=== PATIENT | female | born 1965 | race Caucasian/White ===

== ENCOUNTER → 2021-06-13 | Outpatient (CLI) | payer OTHER ==
[~2021-06-13] MED LIST: CYCLOBENZ5 MG PO; PUB MULTIVITAM1 EACH PO
== END ==
LOC: RAD 09:05
DX: M47.816 Spondylosis without myelopathy or radiculopathy, lumbar region (principal); K80.20 Calculus of gallbladder without cholecystitis without obstruction

== ENCOUNTER → 2021-07-18 | Outpatient (CLI) | payer OTHER | LOC: MAMMO 12:59 | DX: Z12.31 Encounter for screening mammogram for malignant neoplasm of breast (principal) ==

== ENCOUNTER → 2021-08-02 | Outpatient (CLI) | payer OTHER | LOC: LAB 09:18 | DX: N39.0 Urinary tract infection, site not specified (principal) ==

== ENCOUNTER → 2021-08-08 | Outpatient (CLI) | payer OTHER ==
[2021-08-08 08:48] LABS: BASO # 0.01 K/mm3 (0.02-0.10); EOS # 0.04 K/mm3 (0.04-0.40); EOS % 1.4 % (1.0-5.0); HEMATOCRIT 42.8 % (37.0-47.0); HEMOGLOBIN 13.7 g/dL (12.5-16.0); LYMPH# 1.06 K/mm3 (1.50-4.00); MEAN CELL VOLUME 92 fl (78-100); MEAN CORPUSCULAR HEMOGLOBIN 30 pg (27-31); MEAN CORPUSCULAR HGB CONC 32 g/dL (33-37); MONO # 0.27 K/mm3 (0.20-0.80); NEU # 1.47 K/mm3 (1.40-6.50); PLATELET COUNT 285 K/mm3 (130-400); RED BLOOD COUNT 4.63 M/mm3 (4.10-5.30); RED CELL DISTRIBUTION WIDTH 11.8 % (11.5-14.5); WHITE BLOOD COUNT 2.9 K/mm3 (4.8-10.8)
[2021-08-08 08:52] LABS: ALBUMIN 3.9 g/dL (3.5-5.0); POTASSIUM 4.4 mmol/L (3.5-5.1)
[2021-08-08 08:53] LABS: CALCIUM 9.8 mg/dL (8.3-10.5)
[2021-08-08 08:54] LABS: TOTAL PROTEIN 8.3 g/dL (6.4-8.3)
[2021-08-08 08:56] LABS: TOTAL BILIRUBIN 0.5 mg/dL (0.2-1.2)
[2021-08-08 09:10] LABS: PH-URINE 6.5 (5.0 - 8.0); URINE APPEARANCE CLEAR; URINE BILIRUBIN NEGATIVE (NEGATIVE); URINE BLOOD NEGATIVE (NEGATIVE); URINE COLOR LT YELLOW; URINE GLUCOSE NEGATIVE (NEGATIVE); URINE KETONE NEGATIVE (NEGATIVE); URINE LEUKOCYTE ESTERASE NEGATIVE (NEGATIVE); URINE NITRATE NEGATIVE (NEGATIVE); URINE PROTEIN(semi-quant) NEGATIVE (NEGATIVE); URINE UROBILINOGEN NORMAL (NORMAL)
[2021-08-08 09:11] LABS: URINE WBC 0-1 /hpf (0-3)
== END ==
LOC: LAB 08:12
PROVIDERS: Physician Assistant
DX: R10.9 Unspecified abdominal pain (principal)

== ENCOUNTER → 2021-08-09 | Outpatient (CLI) | payer OTHER | LOC: RAD 08:17 | DX: K80.20 Calculus of gallbladder without cholecystitis without obstruction (principal); E27.8 Other specified disorders of adrenal gland | CPT/HCPCS: Q9967 ==

== ENCOUNTER 2021-09-06 18:31 | Emergency (ER) | payer OTHER ==
[2021-09-06] MEDS ORDERED: PUB MULTIVITAM1 EACH PO (20:11)
[2021-09-06] MEDS ORDERED: CYCLOBENZ5 MG PO (21:13)
[2021-09-06 21:20] VITALS: BP 122/78
== END 2021-09-06 21:21 | disposition home or self-care (01) ==
LOC: ED 18:31
DX: S39.012A Strain of muscle, fascia and tendon of lower back, initial encounter (principal); S70.02XA Contusion of left hip, initial encounter; S00.83XA Contusion of other part of head, initial encounter; M79.674 Pain in right toe(s); W10.8XXA Fall (on) (from) other stairs and steps, initial encounter

== ENCOUNTER → 2022-04-09 | Outpatient (CLI) | payer OTHER ==
[2022-04-09 09:48] LABS: URINE APPEARANCE CLEAR; URINE BILIRUBIN NEGATIVE (NEGATIVE); URINE BLOOD NEGATIVE (NEGATIVE); URINE GLUCOSE NEGATIVE (NEGATIVE); URINE KETONE NEGATIVE (NEGATIVE); URINE LEUKOCYTE ESTERASE 1+ (NEGATIVE); URINE NITRATE NEGATIVE (NEGATIVE); URINE PROTEIN(semi-quant) NEGATIVE (NEGATIVE); URINE UROBILINOGEN NORMAL (NORMAL)
[2022-04-09 09:49] LABS: URINE COLOR LIGHT YELLOW
== END ==
LOC: LAB 08:27
PROVIDERS: Physician Assistant
DX: F41.9 Anxiety disorder, unspecified (principal); F43.0 Acute stress reaction; R35.0 Frequency of micturition; R39.9 Unspecified symptoms and signs involving the genitourinary system; Z87.440 Personal history of urinary (tract) infections

== ENCOUNTER → 2022-05-17 | Outpatient (CLI) | payer OTHER | LOC: RAD 08:08 | DX: M25.512 Pain in left shoulder (principal); M25.511 Pain in right shoulder ==

== ENCOUNTER 2022-07-22 08:00 | Outpatient (RCR) | payer OTHER | END 2022-08-19 | disposition still patient (30) | LOC: PT | DX: M25.512 Pain in left shoulder (principal) ==

== ENCOUNTER 2022-08-20 08:00 | Outpatient (RCR) | payer OTHER | END 2022-09-18 16:02 | disposition home or self-care (01) | LOC: PT 08:00 | DX: M25.512 Pain in left shoulder (principal) ==

== ENCOUNTER → 2024-07-14 | Outpatient (CLI) | payer OTHER ==
[~2024-07-14] MED LIST changes: +CEFDINIR300 MG PO; +FLOMAX0.4 MG PO; +PERCOCET 325 MG1 TA2 PO; +ZOFRAN ODT4 MG PO
[2024-07-14 10:41] LABS: BASO # 0.01 K/mm3 (0.02-0.10); EOS # 0.04 K/mm3 (0.04-0.40); EOS % 1.2 % (1.0-5.0); HEMATOCRIT 44.8 % (37.0-47.0); HEMOGLOBIN 14.7 g/dL (12.5-16.0); LYMPH# 1.27 K/mm3 (1.50-4.00); MEAN CELL VOLUME 91 fl (78-100); MEAN CORPUSCULAR HEMOGLOBIN 30 pg (27-31); MEAN CORPUSCULAR HGB CONC 33 g/dL (33-37); MONO # 0.23 K/mm3 (0.20-0.80); NEU # 1.81 K/mm3 (1.40-6.50); PLATELET COUNT 258 K/mm3 (130-400); RED BLOOD COUNT 4.93 M/mm3 (4.10-5.30); RED CELL DISTRIBUTION WIDTH 12.2 % (11.5-14.5); WHITE BLOOD COUNT 3.4 K/mm3 (4.8-10.8)
[2024-07-14 10:45] LABS: ALBUMIN 4.2 g/dL (3.5-5.0)
[2024-07-14 10:49] LABS: TOTAL BILIRUBIN 0.7 mg/dL (0.2-1.2)
[2024-07-14 22:53] LABS: FOLLICLE STIMULATING HORMONE 68.1 mIU/mL (()); LUTENIZING HORMONE 33.9 mIU/mL (())
== END ==
LOC: LAB 10:22
PROVIDERS: Physician Assistant
DX: R53.83 Other fatigue (principal); E89.41 Symptomatic postprocedural ovarian failure; E78.5 Hyperlipidemia, unspecified

== ENCOUNTER → 2024-08-13 | Outpatient (CLI) | payer OTHER | LOC: RAD 12:37 | DX: N20.2 Calculus of kidney with calculus of ureter (principal) ==

== ENCOUNTER 2024-11-19 07:17 | Emergency (ER) | payer OTHER ==
[~2024-11-19] VITALS: Ht 160 cm; Wt 63.6 kg
[2024-11-19] MEDS ORDERED: Mag/Al Hydrox/Simeth Susp 30 ML CUP PO ONE (07:45)
[2024-11-19 07:47] LABS: BASO # 0.01 K/mm3 (0.02-0.10); EOS # 0.07 K/mm3 (0.04-0.40); EOS % 1.7 % (1.0-5.0); HEMATOCRIT 42.9 % (37.0-47.0); HEMOGLOBIN 13.9 g/dL (12.5-16.0); LYMPH# 1.51 K/mm3 (1.50-4.00); MEAN CELL VOLUME 92 fl (78-100); MEAN CORPUSCULAR HEMOGLOBIN 30 pg (27-31); MEAN CORPUSCULAR HGB CONC 32 g/dL (33-37); MEAN PLATELET VOLUME 9.1 fl (7.4-10.4); MONO # 0.26 K/mm3 (0.20-0.80); NEU # 2.24 K/mm3 (1.40-6.50); PLATELET COUNT 250 K/mm3 (130-400); RED BLOOD COUNT 4.65 M/mm3 (4.10-5.30); RED CELL DISTRIBUTION WIDTH 12.2 % (11.5-14.5); WHITE BLOOD COUNT 4.1 K/mm3 (4.8-10.8)
[2024-11-19 07:52] LABS: ALBUMIN 4.1 g/dL (3.5-5.0)
[2024-11-19 07:53] LABS: CALCIUM 9.4 mg/dL (8.3-10.5)
[2024-11-19 07:56] LABS: TOTAL BILIRUBIN 0.5 mg/dL (0.2-1.2)
[2024-11-19 08:20] LABS: D-DIMER 0.28 mg/L FEU (0.15-0.50)
[2024-11-19] MEDS ORDERED: PANTOPRAZOLE SO40 MG PO (08:41)
[2024-11-19 08:54] VITALS: BP 130/79
== END 2024-11-19 08:56 | disposition home or self-care (01) ==
LOC: ED 07:17
PROVIDERS: Family Medicine
DX: R07.89 Other chest pain (principal)

== ENCOUNTER → 2024-12-31 | Outpatient (CLI) | payer OTHER ==
[~2024-12-31] MED LIST changes: +PANTOPRAZOLE SO40 MG PO
== END ==
LOC: RAD 08:13
DX: R07.9 Chest pain, unspecified (principal)